=== PATIENT | male | born 1950 | race Caucasian/White ===

== ENCOUNTER 2020-09-04 07:16 | Emergency (ER) | payer MEDICARE, OTHER, SELFPAY ==
[2020-09-04 07:16] VITALS: BP 132/91; PULSE 100; RESP 16; TEMP 36.6; O2SAT 96
[2020-09-04 08:02] LABS: Basophils Absolute Auto 0.03 K/mm3 (0.00-0.10); Basophils Percent Auto 0.4 % (0.0-1.0); Eosinophils Absolute Auto 0.18 K/mm3 (0.02-0.50); Eosinophils Percent Auto 2.4 % (1.0-6.0); Hematocrit 43.7 % (37.0-46.0); Hemoglobin 14.6 g/dL (12.4-15.3); Immature Granulocyte Absolute 0.02 K/mm3 (0.00-0.00); Immature Granulocyte Percent A 0.3 % (0.0-0.0); Lymphocytes Absolute Auto 1.59 K/mm3 (1.10-4.50); Lymphocytes Percent Auto 21.3 % (18.0-42.0); Mean Corpuscular HGB Conc 33.4 g/dL (32.0-36.0); Mean Corpuscular Hemoglobin 33.6 pg (27.0-31.0); Mean Corpuscular Volume 100.5 fL (78.0-102.0); Monocytes Absolute Auto 0.92 K/mm3 (0.10-0.90); Monocytes Percent Auto 12.3 % (2.0-11.0); Neutrophils Absolute Auto 4.7 K/mm3 (1.7-7.2); Neutrophils Percent Auto 63.3 % (50.0-70.0); Platelet Count Result 264 K/mm3 (150-420); Red Blood Count 4.35 M/mm3 (4.70-6.10); Red Cell Distribution Width 12.6 % (11.6-14.4); White Blood Count 7.5 K/mm3 (4.8-10.8)
[2020-09-04 08:09] LABS: Add Urine Microscopic? NO; Appearance Urine Clear (Clear); Bilirubin Urine Negative (Negative); Blood Urine Negative (Negative); Color Urine Yellow (Yellow); Glucose Urine UA Negative (Negative); Ketones Urine Negative (Negative); Leukocyte Esterase Ur Negative (Negative); Nitrate Urine Negative (Negative); Protein Urine Negative (Negative); Specific Grav Ur 1.015 (1.010-1.020); Urobilinogen Urine 0.2 mg/dL (0.2-1.0); pH Urine 5.5 (5.0-8.0)
[2020-09-04 08:26] LABS: Chloride 103 mmol/L (98-108); Potassium 3.4 mmol/L (3.5-5.1); Sodium 140 mmol/L (136-145)
[2020-09-04 08:27] LABS: Alanine Aminotransferase 25 U/L (16-63); Albumin Level 3.3 g/dL (3.4-5.0); Alkaline Phosphatase 74 U/L (46-116); Anion Gap 6 mmol/L (8-16); Aspartate Amino Transferase 10 U/L (15-37); Bilirubin,Total 0.4 mg/dL (0.00-1.00); Blood Urea Nitrogen 16 mg/dL (7-18); Calcium 9.2 mg/dL (8.5-10.1); Carbon Dioxide 31 mmol/L (21-32); Estimated CRCL calculation 83 ml/min; Estimated Glomerular Filt Rate > 60; Glucose 72 mg/dL (70-99); Osmolality Calculated 290 mOsm/kg (285-295); Total Protein 6.2 g/dL (6.4-8.2)
[2020-09-04 08:29] LABS: Acetaminophen 0 ug/mL (10-30); Ammonia < 10 umol/L (11-32); Ethanol < 3 mg/dL (0-6); Salicylate 1.6 mg/dL (2.8-20.0)
[2020-09-04 08:31] LABS: Amphetamine Screen Urine Negative (Negative); Barbiturate Screen Urine Negative (Negative); Benzodiazepines Screen Urine Negative (Negative); Cannabinoid Screen Urine Negative (Negative); Cocaine Screen Urine Negative (Negative); Methadone Screen Urine Negative (Negative); Opiate Screen Urine Negative (Negative); Phencyclidine Screen Urine Negative (Negative)
[2020-09-04 08:34] LABS: Thyroid Stimulating Hormone 2.53 uIU/mL (0.36-3.74)
[2020-09-04 08:43] LABS: HIV 1 P24 AG Negative (Negative); HIV 1/2 AB Negative (Negative)
[2020-09-04 08:55] LABS: Folic Acid > 20.0 ng/mL (8.6->20); Vitamin B12 579 pg/mL (193-986)
--- NOTE | 2020-09-04 09:26 | PC.NURSE ---
0800 breakfast tray given. pt ate food provided. 0820 pt sleeping. 0900 pt sleeping. dog at bedside. call to [facility]. awaiting return call.
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
--- NOTE | 2020-09-04 10:11 | PC.NURSE ---
SPOKE WITH VITALY NICOLE, INFORMED OF SITUATION WITH PT.
--- NOTE | 2020-09-04 10:28 | PC.NURSE ---
PT SLEEPING, SITTER OUTSIDE OF DOOR.
--- NOTE | 2020-09-04 10:52 | PC.NURSE ---
PT SLEEPING, DOG AT BEDSIDE. DOG HAS BEEN TAKEN OUT FOR BATHROOM. DAUGHTER DID STATE SHE WILL SAWMILL OR [employer] WORK[employer] DOG. REPORT TO [facility] AND COPY OF CHART GIVEN, REPORT TO LUCITA COVARRUBIAS.
--- NOTE | 2020-09-04 10:58 | ED.PSYCH ---
HPI - Psych General Chief Complaint: Psychiatric Symptoms Stated Complaint: ambulance History of Present Illness HPI Narrative: this is a 69-year-old gentleman that presents to the emergency department via EMS after police was called, the patient was wondering while driving and has been having delusions of the Mafia chasing him, and having delusions that he feels like they are spraying a mist or fog like substance at him while he is driving, symptoms have been progressive since April of 2020. The patient has numerous instances where he will drive from state to state with the similar delusions. Has called police to come in investigate his home on numerous occasions and no gas like substance was found in his home. The patient does not appear to be in a acute distress with no suicidal or homicidal ideation. Patient was recently seen in the emergency department for similar delusions in [place]. Currently the patient denies any headaches, no blurry vision no abdominal pain no chest pain no shortness of breath no cough no fever chills. Patient states that he drinks about 8 to 9 beers per day, symptoms have been progressive since or early April of this year. Patient has an emotional support dog that accompanies him. complaint: altered mental status Onset (ago): month(s) Duration: constant and getting worse History of same: Yes Relieving factors: none Exacerbating factors: none Context: recent alcohol abuse Associated psychiatric symptoms: auditory hallucinations and delusions Related Data Home Medications Medication Instructions Recorded Confirmed Unable to Obtain Home Medications 09/04/20 09/04/20 Allergies Allergy/AdvReac Type Severity Reaction Status Date / Time No Known Allergies Allergy Verified 09/04/20 08:24 Review of Systems Review of Systems: All systems reviewed & are unremarkable except as noted in HPI and below PMFSH Past Medical History Medical History Psychosis Exam Const: General: healthy appearing, no acute distress, alert and confusion Orientation/consciousness: patient oriented x3 Limitations: altered mental status HENMT: Head: normal to inspection and contusion Eyes: Conjunctivae: conjunctivae normal Pupils: Equal, round and reactive pupils present EOM: EOMs intact bilaterally Neck: Neck: normal visual inspection, no lymphadenopathy and no meningeal signs Chest: Chest palpation & inspection: normal inspection of the chest Resp: Effort & Inspection: normal respiratory effort Auscultation: clear to auscultation bilaterally Cardio: Rate: regular rate Rhythm: regular rhythm GI: GI Palp: Yes Soft to palpation Percussion: Yes normal to percussion Back/Spine/Pelvis: Back: no CVA tenderness Skin: General skin exam: normal color Rashes: no rashes Extrem: General: normal to inspection and no pedal edema Psych: Appearance: grossly normal Attitude: cooperative Thought content: Yes Paranoid delusions present, Yes delusions and Yes Hallucination(s) present Course Course Emergency Course: reassess patient after labs were were drawn and there is no abnormalities noted, mental health workers here to assess patient currently. reassessment of patient by mental neuro ophthalmologist deems it appropriate for transfer to a psychiatric unit for further evaluation and treatment, patient has been accepted to [facility]. Vital Signs Vital signs: Vital Signs Temperature 36.6 C 09/04/20 07:16 Pulse Rate 100 09/04/20 07:16 Respiratory Rate 16 09/04/20 07:16 Blood Pressure 132/91 H 09/04/20 07:16 Pulse Oximetry 96 09/04/20 07:16 Temperature 36.6 C 09/04/20 07:16 Pulse Rate 88 09/04/20 11:00 Respiratory Rate 16 09/04/20 07:16 Blood Pressure 127/88 09/04/20 11:00 Pulse Oximetry 93 09/04/20 11:00 MDM - Psych Lab Data Result diagrams: 09/04/20 07:55 09/04/20 07:55 Labs: Lab Re
[2020-09-04 11:00] VITALS: BP 127/88; PULSE 88; O2SAT 93
--- NOTE | 2020-09-04 11:57 | PC.NURSE ---
[facility] MEDICAL RECORDS TECH HAS DEEMED PATIENT NOT SUICIDAL OR HOMICIDAL BUT IS GOING TO TRY FOR HOSPITAL PLACEMENT FOR THE FEAR OF HIS DELUSIONS. PT MOOD IS CALM AND APPROPRIATE, WATCHING TV AND EATING LUNCH AT THIS TIME.
--- NOTE | 2020-09-04 13:41 | ECG_ITS ---
Measurements Intervals [place] Rate: 99 P: 76 HI: 213 QRS: 33 QRSD: 81 T: 12 QT: 376 QTc: 484 Interpretive Statements SINUS RHYTHM BORDERLINE AV CONDUCTION DELAY NONSPECIFIC T-WAVE ABNORMALITY- INFERIOR LEADS BORDERLINE ECG Electronically Signed On 09-04-2020 14:44:43 CDT by Jon Kothari D.O.
[2020-09-04 16:11] VITALS: BP 123/95; PULSE 88; O2SAT 98
--- NOTE | 2020-09-04 17:07 | PC.NURSE ---
UPDATE SENT TO DAUGHTER TAMIKO - PATIENT CAR WAS TAKEN TO [facility] IN [facility]
[2020-09-06 19:40] LABS: RPR Screen Non-Reactive (Non-Reactive)
== END 2020-09-04 16:38 ==
PROVIDERS: Emergency Provider Emergency Medicine
DX: F29 Unspecified psychosis not due to a substance or known physiological condition (principal); R41.82 Altered mental status, unspecified
CPT/HCPCS: 36415; 80053; 80307; 81003; 82140; 82607; 82746; 84443; 85025; 86592; 86703; 93005; 99285